=== PATIENT | male | born 1980 | race Caucasian/White ===

== ENCOUNTER 2020-08-02 10:27 | Day surgery (SDC) | payer OTHER, SELFPAY ==
[~2020-08-02] VITALS: Ht 188 cm; Wt 74.8 kg
[2020-08-02] MEDS ORDERED: fentaNYL citrate 0.05 MG/ML VIAL ONE (12:10)
[2020-08-02] MEDS ORDERED: MIDAZOLAM 2 MG/2 ML VIAL ONE (12:10)
[2020-08-02] MEDS ORDERED: LIDOCAINE VISCOUS 2% 20 ML UDC ONE (12:12)
[2020-08-02] MEDS ORDERED: MIDAZOLAM 5 MG/5 ML VIAL ONE (12:17)
[2020-08-02] MEDS ORDERED: fentaNYL citrate 0.05 MG/ML VIAL IVP ONE (13:25)
[2020-08-02] MEDS ORDERED: MIDAZOLAM 2 MG/2 ML VIAL IVP ONE (13:25)
== END 2020-08-02 13:35 | disposition home or self-care (01) ==
LOC: MDS 10:27 → MMU 11:07 → MDS 13:35
PROVIDERS: ATTEND Internal Medicine Gastroenterology
DX: R13.10 Dysphagia, unspecified (principal); K22.0 Achalasia of cardia; J45.909 Unspecified asthma, uncomplicated; Z20.828 Contact with and (suspected) exposure to other viral communicable diseases
CPT/HCPCS: 43233; C1727; J2250; J3010; U0003